=== PATIENT | male | born 2005 | race Two or more races ===

== ENCOUNTER 2025-01-21 14:26 | Emergency (ER) | payer MEDICAID, SELFPAY ==
[2025-01-21 14:33] VITALS: BP 142/82; PULSE 64; RESP 18; TEMP 36.8; O2SAT 98; BMI 26.6
--- NOTE | 2025-01-21 14:36 | PD.EDWOUND ---
ED Wound/Laceration-RME/HPI General Chief Complaint: Wound/Laceration Stated Complaint: LAC R) PALM Time Seen by Provider: 01/21/25 14:33 Source: patient Arrival date/time: 01/21/25 14:26 19-year-old male with no known medical history presents to the emergency room with a chief complaint of a laceration to his right palm. The patient also has a laceration to the right tip of his index finger. Mode of arrival: ambulatory Limitations: no limitations Related Data Allergies Allergy/AdvReac Type Severity Reaction Status Date / Time No Known Allergies Allergy Unknown Verified 01/21/25 14:28 Review of Systems Review of Systems Systems Reviewed: All systems reviewed, normal except as documented Constitutional Constitutional: Reports system reviewed and no additional complaints, except as documented, Denies fatigue, Denies fever(s), Denies headache(s) and Denies weakness Eyes Eyes: Reports system reviewed and no additional complaints, except as documented, Denies blurry vision and Denies change in vision ENT Ears, Nose, Mouth, and Throat: Reports system reviewed and no additional complaints, except as documented, Denies otalgia, Denies headache(s), Denies nasal congestion, Denies throat swelling and Denies vertigo Cardiovascular Cardiovascular: Reports system reviewed and no additional complaints, except as documented, Denies chest pain, Denies dyspnea and Denies dyspnea on exertion Respiratory Respiratory: Reports system reviewed and no additional complaints, except as documented, Denies chest congestion, Denies cough, Denies dyspnea, Denies dyspnea on exertion and Denies wheezing Gastrointestinal Gastrointestinal: Reports system reviewed and no additional complaints, except as documented, Denies abdominal pain, Denies cramping, Denies nausea and Denies vomiting Genitourinary Genitourinary: Reports system reviewed and no additional complaints, except as documented, Denies dysuria and Denies hematuria Musculoskeletal Musculoskeletal: Reports system reviewed and no additional complaints, except as documented and Denies back pain Integumentary/Breasts Skin/Breast: Reports system reviewed and no additional complaints, except as documented and Reports wounds Neurologic Neurologic: Reports system reviewed and no additional complaints, except as documented, Denies confusion, Denies headache(s), Denies lack of coordination, Denies vertigo and Denies weakness Psychiatric Psychiatric: Reports system reviewed and no additional complaints, except as documented, Denies anxiety, Denies confusion, Denies depression, Denies paranoia, Denies suicidal ideation and Denies tactile hallucinations Endocrine Endocrine: Reports system reviewed and no additional complaints, except as documented and Denies fatigue Hematologic/Lymphatic Hematologic/Lymphatic: Reports system reviewed and no additional complaints, except as documented and Denies lymphadenopathy Allergic/Immunologic Allergic/Immunologic: Reports system reviewed and no additional complaints, except as documented, Denies throat swelling, Denies urticaria and Denies wheezing ED Exam General Limitations: Present no limitations General appearance: Present alert and in no apparent distress Head Head exam: Present atraumatic Eye Eye exam: Present normal appearance, PERRL and EOMI ENT ENT exam: Present normal exam, normal oropharynx and mucous membranes moist Neck Neck exam: Present normal inspection, full ROM and trachea midline Chest Chest inspection: Present normal inspection and symmetric chest wall rise Respiratory Respiratory exam: Present normal lung sounds bilaterally Cardiovascular Cardiovascular exam: Present regular rate, normal rhythm and normal heart sounds Abdominal Exam Abdominal exam: Present soft and normal bowel sounds Extremities Exam Extremities exam: Present normal inspection and full ROM Expanded Upper Extremity Exam Shoulder exam: Present normal inspection Arm exam: Present normal inspection Elbow exam: Present normal inspection Forearm/Wrist exam: Present normal inspection Hand exam: Present normal inspection, tenderness, laceration and erythema Hand L/R front image:  1. laceration (0.5 cm laceration to the right palm) 2. abrasion Back Exam Back exam: Present normal inspection and full ROM Neurological Exam Neurological exam: Present alert, oriented X3 and CN II-XII intact Psychiatric Psychiatric exam: Present normal affect and normal mood Skin Skin exam: Present warm, dry, intact and normal color Course Quality Measures none Orders Category Date Time Status Set Up Suture Tray STAT Care 01/21/25 14:36 Active Wound Care NOW Care 01/21/25 14:36 Active Lidocaine 1% 20 ml [Xylocaine 1% 20 ML] Med 01/21/25 14:35 Discontinued 20 ml INFL X1 ONE Tet,Diphth,Pertuss(Acell)-Tdap [Boostrix Vacc] Med 01/21/25 14:35 Discontinued 0.5 ml IMI .ONCE ONE Vital Signs Vital signs: Vital Signs Temperature 98.2 F 01/21/25 14:33 Pulse Rate 64 01/21/25 14:33 Respiratory Rate 18 01/21/25 14:33 Blood Pressure 142/82 H 01/21/25 14:33 Pulse Oximetry (%) 98 01/21/25 14:33 Oxygen Delivery Method Room Air 01/21/25 14:33 O2 saturation 98% within normal limits Procedures -ED Laceration Laceration 1: Site: hand Side (If applicable): left and right Size (cm): 1 Description: linear Depth: simple, single layer Local Anesthetic: lidocaine 1% Amount of anesthesia used (mL): 4 Pre-repair: irrigated extensively Skin layer closed with: nylon Size (cm): 4-0 Number of sutures: 3 Technique: simple, interrupted Wound / Laceration MDM Narrative MDM Narrative:: 19-year-old male with no known medical history presents to the emergency room with a chief complaint of a laceration to his right palm. The patient also has a laceration to the right tip of his index finger. Patient is hemodynamically stable and in no apparent distress Physical examination shows a 1 cm laceration to the right palm. There is also a small abrasion to the right tip of the index finger. Patient states this occurred with glass and that occurred last night. The laceration occured with glass last night The mechanism of injury was glass laceration Sensation is intact. There is full ROM. There is no exposed tendons. No foreign bodies. Lidocaine 1% was used for anesthesia. The wound was irrigated extensively with normal saline. 3 sutures were placed. A dressing was placed. There were no complications. Patient was educated to keep the area clean and dry for 24 hours, then clean daily with soap and water. Patient was educated to return for any signs of infection including swelling pain redness pus or fever and to make an appointment with primary care provider in 48 hours. Patient was educated to follow up with primary or return to emergency room for suture removal in the next 7-10 days. Patient data External records reviewed:: [facility] previous records Clinical information provided by:: patient Social determinants that could affect healthcare access:: none Patient has the following chronic illnesses:: No chronic illness How is presenting disease/condition affected by chronic disease/condition?: no chronic disease Evaluation data The following diagnostics were reviewed and interpreted by me:: lab results and radiology exam(s) Lab and/or radiology exams considered but not ordered:: Labs and radiology exams considered and ordered Interpretation Summary: N/A Medications / Prescriptions Medications or Prescriptions considered but not ordered:: Medication given Medication administrations:: Medication Administration History Discontinued Medications Diphtheria/Tetanus/Acell Pertussis (Diphth,Pertuss(Acell),Tet Vac 0.5 Ml Syr- Adult) 0.5 ml IMi .ONCE ONE Stop: 01/21/25 14:36 Last Admin: 01/21/25 14:55 Dose: 0.5 ml Documented By: RONDA Lidocaine HCl (Lidocaine Hcl 1% 20 Ml Vial) 20 ml INFL X1 ONE Stop: 01/21/25 14:36 Last Admin: 01/21/25 14:58 Dose: 20 ml Documented By: RONDA Medication given Consultations Consultation(s) initiated? (list below): No Diagnosis Wound Differential Diagnosis: laceration, abscess and abrasion Most likely diagnosis given after review of the tests above:: Laceration Admission Indicated Admission indicated?: not indicated Admission Request Was there a request for admission?: No Disposition Plan Disposition Plan: Discharge Discharge Attestation Discharge Attestation: The patient and all family members were given an opportunity to ask questions and understood the discharge instructions. Discharge instructions specifically effects, indications for sooner follow up or return to the emergency department, and the expected course of current diagnosis. Patient condition: Stable Discharge Plan Plan Patient Disposition: HOME (Self Care) Disposition Comment: Stable Prescriptions/Referrals Referrals: Narendra Thomas MD [Primary Care Provider] - In 1 week Problem List Clinical Impression: Laceration Patient/Caregiver Discharge Instructions Additional Instructions: Please follow-up with your primary care provider in the next 24 to 48 hours. Medication was sent to your pharmacy please pick it up and take it as indicated. For any evidence of worsening signs or symptoms return the emergency room immediately Print Language: Thai Stand Alone Forms: [employer]andace Award Info., Patient Portal Info Letter PARVEEN/GILBERT Supervising Physician PARVEEN/GILBERT Supervising Physician: Dr. Christie
[2025-01-21] MEDS: DIPHTH,PERTUSS(ACELL),TET VAC 0.5 ML SYR- ADULT IMi (14:55)
[2025-01-21] MEDS: LIDOCAINE HCL 1% 20 ML VIAL INFL (14:58)
== END 2025-01-21 15:35 | disposition home or self-care (01) ==
PROVIDERS: Emergency Provider Emergency Medicine; PCP Family Medicine
DX: S61.210A Laceration without foreign body of right index finger without damage to nail, initial encounter (principal); X58.XXXA Exposure to other specified factors, initial encounter; Z23 Encounter for immunization
CPT/HCPCS: 12001; 90471; 90715; 99283; J3490

== ENCOUNTER 2025-01-28 18:59 | Emergency (ER) | payer MEDICAID, SELFPAY ==
[2025-01-28 19:20] VITALS: BP 126/78; PULSE 61; RESP 18; TEMP 37.2; O2SAT 98
--- NOTE | 2025-01-28 19:38 | EDNOTE_ITS ---
ED Wound/Laceration-RME/HPI General Chief Complaint: Wound Recheck / Suture Removal Stated Complaint: REMOVAL OF SUTURE Time Seen by Provider: 01/28/25 19:22 Arrival date/time: 01/28/25 18:59 19M with no significant PMH presents to ED with R hand suture removal. Repair was done 7 days ago. Limitations: no limitations Related Data Allergies Allergy/AdvReac Type Severity Reaction Status Date / Time No Known Allergies Allergy Unknown Verified 01/28/25 19:01 Review of Systems Review of Systems Systems Reviewed: All systems reviewed, normal except as documented Constitutional Constitutional: Reports system reviewed and no additional complaints, except as documented, Denies fever(s) and Denies headache(s) ENT Ears, Nose, Mouth, and Throat: Denies disequilibrium and Denies headache(s) Cardiovascular Cardiovascular: Reports system reviewed and no additional complaints, except as documented, Denies chest pain and Denies dyspnea Respiratory Respiratory: Reports system reviewed and no additional complaints, except as documented, Denies cough and Denies dyspnea Gastrointestinal Gastrointestinal: Reports system reviewed and no additional complaints, except as documented, Denies abdominal pain, Denies nausea and Denies vomiting Neurologic Neurologic: Reports system reviewed and no additional complaints, except as documented, Denies confusion, Denies disequilibrium and Denies headache(s) Psychiatric Psychiatric: Denies confusion Past Medical History Social History SMOKING STATUS: Never smoker ED Exam General Limitations: Present no limitations General appearance: Present alert and in no apparent distress Head Head exam: Present atraumatic Eye Eye exam: Present normal appearance, PERRL and EOMI ENT ENT exam: Present normal exam, normal oropharynx and mucous membranes moist Neck Neck exam: Present normal inspection, full ROM and trachea midline Chest Chest inspection: Present normal inspection and symmetric chest wall rise Respiratory Respiratory exam: Present normal lung sounds bilaterally Cardiovascular Cardiovascular exam: Present regular rate, normal rhythm and normal heart sounds Abdominal Exam Abdominal exam: Present soft and normal bowel sounds Extremities Exam Extremities exam: Present full ROM Expanded Upper Extremity Exam Hand exam: Present full ROM and other (open wound on R palm) Back Exam Back exam: Present normal inspection and full ROM Neurological Exam Neurological exam: Present alert, oriented X3 and CN II-XII intact Psychiatric Psychiatric exam: Present normal affect and normal mood Skin Skin exam: Present warm, dry, intact and normal color Course Quality Measures none Orders Category Date Time Status Wound Care NOW Care 01/28/25 19:23 Active Vital Signs Vital signs: Vital Signs Temperature 98.9 F 01/28/25 19:20 Pulse Rate 61 01/28/25 19:20 Respiratory Rate 18 01/28/25 19:20 Blood Pressure 126/78 01/28/25 19:20 Pulse Oximetry (%) 98 01/28/25 19:20 Oxygen Delivery Method Room Air 01/28/25 19:20 O2 at 98% on RA and WNLs Wound / Laceration MDM Narrative MDM Narrative:: 19M with no significant PMH presents to ED with R hand suture removal. Repair was done 7 days ago. Physical exam reveals 3 sutures not holding skin together. It is effectively an open wound. No skin redness or tenderness. ROM intact. Patient is afebrile, calm, and alert. Sutures removed because they were not holding skin in place; should be 10-14 days post repair. Too late to put in new stitches. Wound care and student services counselor given, including to use antibiotic cream such as Bacitracin. Patient data External records reviewed:: [facility] previous records Clinical information provided by:: patient Social determinants that could affect healthcare access:: none Patient has the following chronic illnesses:: none How is presenting disease/condition affected by chronic disease/condition?: no chronic disease Evaluation data The following diagnostics were reviewed and interpreted by me:: other (specify) (none) Lab and/or radiology exams considered but not ordered:: not ordered Interpretation Summary: n/a Medications / Prescriptions Medications or Prescriptions considered but not ordered:: not ordered Medication administrations:: n/a Consultations Consultation(s) initiated? (list below): No Diagnosis Wound Differential Diagnosis: laceration, abscess, abrasion and avulsion of skin Most likely diagnosis given after review of the tests above:: laceration Admission Indicated Admission indicated?: not indicated Admission Request Was there a request for admission?: No Disposition Plan Disposition Plan: Discharge Discharge Attestation Discharge Attestation: The patient and all family members were given an opportunity to ask questions and understood the discharge instructions. Discharge instructions specifically effects, indications for sooner follow up or return to the emergency department, and the expected course of current diagnosis. Patient condition: Stable Discharge Plan Plan Patient Disposition: HOME (Self Care) Disposition Comment: Stable Prescriptions/Referrals Referrals: Narendra Thomas MD [Primary Care Provider] - In 1 week Problem List Clinical Impression: Laceration Patient/Caregiver Discharge Instructions Additional Instructions: Please follow-up with PCP within 24-48 hours and return immediately if symptoms worsen. Keep wound moistened with ointment and bandaged. Avoid getting wet and using hand. Print Language: Syriac Stand Alone Forms: Patient Portal Info Letter PA/REHABILITATION PHYSICIAN Supervising Physician PA/REHABILITATION PHYSICIAN Supervising Physician: Dr. Christie
== END 2025-01-28 19:44 | disposition home or self-care (01) ==
PROVIDERS: Emergency Provider Emergency Medicine; PCP Family Medicine
DX: Z48.02 Encounter for removal of sutures (principal)
CPT/HCPCS: 99282